=== PATIENT | male | born 1965 | race Caucasian/White ===

== ENCOUNTER → 2018-09-20 | Outpatient (CLI) | payer MEDICARE, MEDICAID ==
--- NOTE | 2018-09-20 15:13 | Diagnostic Imaging Report ---
INDICATION: Cough. TECHNIQUE: Two view chest 2:57 PM. CORRELATION STUDY: None FINDINGS: Heart size within normal limits. Slight increased density left hilum likely attributed to patient positioning. Lung [place] demonstrate no infiltrate. Slight hyperinflation suggested. Diffuse thin bridging osteophytes of the thoracic spine along with curvature. Features raise suggestion of ankylosing spondylitis. There is absence of disc spaces at the mid and lower thoracic spine. IMPRESSION: 1. No radiographic evidence for acute abnormality of the chest. 2. Diffuse thin bridging fusion across the vertebral bodies suggesting underlying ankylosing spondylitis. Dictated by: Dictated on workstation # [id number]
== END ==
LOC: RAD FS 14:53
PROVIDERS: ATTEND Nurse Practitioner Family
DX: J44.9 Chronic obstructive pulmonary disease, unspecified (principal); Z98.1 Arthrodesis status
CPT/HCPCS: 71046

== ENCOUNTER → 2018-11-02 | Outpatient (CLI) | payer MEDICARE, MEDICAID ==
[~2018-11-02] MED LIST: RT-ALBUTEROL SULF 2.5 MG/3 ML PRE-MIX VIAL INH ONE; RT-ALBUTEROL SULF 2.5 MG/3 ML PRE-MIX VIAL ONE
== END ==
LOC: RT 14:35
PROVIDERS: ATTEND Nurse Practitioner Family
DX: J44.9 Chronic obstructive pulmonary disease, unspecified (principal)
CPT/HCPCS: 94060; 94726; 94729

== ENCOUNTER → 2020-09-05 | Outpatient (CLI) | payer MEDICARE, MEDICAID ==
--- NOTE | 2020-09-05 12:29 | Diagnostic Imaging Report ---
INDICATION: Left hip pain. Fall. FINDINGS: 3 views. The femoral head is in good alignment with the acetabulum. There are mild arthritic changes. There are no fractures. The articulating surfaces are smooth. No significant hypertrophic changes. No soft tissue calcification demonstrated about the hip. IMPRESSION: Mild arthritic changes with no acute abnormalities noted. Dictated by: Dictated on workstation # [id number]
== END ==
LOC: RAD FS 12:10
PROVIDERS: ATTEND Nurse Practitioner Family
DX: M16.12 Unilateral primary osteoarthritis, left hip (principal); W19.XXXA Unspecified fall, initial encounter
CPT/HCPCS: 73502

== ENCOUNTER → 2020-09-24 | Outpatient (CLI) | payer MEDICARE, MEDICAID ==
--- NOTE | 2020-09-24 10:02 | Diagnostic Imaging Report ---
INDICATION: Left hip pain, fall 2 weeks ago. TIME OF EXAM: 9:12 AM. TECHNIQUE: Two views of the left hip were obtained. FINDINGS: There is normal femoroacetabular alignment. The femoral head and neck appear to be intact. No fractures are seen. The rami are intact. IMPRESSION: No acute bony abnormality is detected. Dictated by: Dictated on workstation # [id number]
== END ==
LOC: RAD FS 09:01
PROVIDERS: ATTEND Nurse Practitioner
DX: M16.12 Unilateral primary osteoarthritis, left hip (principal)
CPT/HCPCS: 73502

== ENCOUNTER 2021-06-05 08:57 | Outpatient (CLI) | payer MEDICARE, MEDICAID ==
[~2021-06-05] VITALS: Ht 165 cm; Wt 75.0 kg
[2021-06-05] MEDS ORDERED: TRAM50TA3 PO (10:57)
[2021-06-05] MEDS ORDERED: ROSU20TA32 PO (10:57)
[2021-06-05] MEDS ORDERED: ALPR0.254 PO (10:57)
[2021-06-05] MEDS ORDERED: RT-ALBUINH IH (10:57)
== END 2021-06-05 15:08 | disposition home or self-care (01) ==
LOC: PREOP 08:57
PROVIDERS: ATTEND Surgery
DX: Z01.818 Encounter for other preprocedural examination (principal)

== ENCOUNTER 2021-06-09 08:55 | Day surgery (SDC) | payer MEDICARE, MEDICAID ==
[~2021-06-09] VITALS: Ht 165 cm; Wt 75.0 kg
[~2021-06-09 08:55] MED LIST changes: +ALPR0.254 PO; +ROSU20TA32 PO; +RT-ALBUINH IH; -RT-ALBUTEROL SULF 2.5 MG/3 ML PRE-MIX VIAL INH ONE; -RT-ALBUTEROL SULF 2.5 MG/3 ML PRE-MIX VIAL ONE; +TRAM50TA3 PO
[2021-06-09] MEDS ORDERED: LACTATED RINGERS 1,000 ML IV STA (08:58)
[2021-06-09] MEDS ORDERED: LACTATED RINGERS 1,000 ML IV ONE (09:01)
[2021-06-09 09:10] VITALS: BP 130/85
--- NOTE | 2021-06-09 09:57 | Progress Note-Pre Operative ---
Pre-Operative Progress Note H&P Reviewed The H&P was reviewed, patient examined and no changes noted. Time Seen by Provider: 09:55 Date H&P Reviewed: Jun 09, 2021 Time H&P Reviewed: 09:55 Pre-Operative Diagnosis: PARAS Chapman DO Jun 09, 2021 09:57
[2021-06-09] MEDS ORDERED: PROPOFOL INJECTION 50 ML IV ONE (11:24)
--- NOTE | 2021-06-09 11:52 | Progress Note-Post Operative ---
Post-Operative Progess Note Surgeon (s)/Government Instructor (s) Surgeon PARAS LUCIA DO Government Instructor: MAYLIN Arora Pre-Operative Diagnosis Screening Post-Operative Diagnosis Polyp diverticula hemorrhoids Procedure & Operative Findings Date of Procedure 06/09/21 Procedure Performed/Findings Colonoscopy with snare polypectomy PROCEDURE NOTE: After informed consent was obtained, the patient was brought to the endoscopy suite, placed in bed in left lateral decubitus position. He was administered IV sedation by the SPECIALTY TRIMMER who then monitored his vitals the entire time, heart rate, blood pressure and pulse ox and the scope was inserted, pushed all the way to about 150 cm and pushed into the cecum. Took a picture of appendiceal orif ice and then slowly withdrew the scope insufflating to look circumferentially at the begum starting in the cecum and up the ascending colon. Found a polyp in the ascending colon, took a picture and then removed it with a snare polypectomy. Continued up to the hepatic flexure, then down the transverse colon to the splenic flexure. Finally into the descending colon and down through the sigmoid; found diverticula throughout here. Next into the rectal vault and retroflexed the scope. Took picture of the internal hemorrhoids. The patient tolerated the procedure. He was recovered in endoscopy suite. Anesthesia Type IV sedation by SPECIALTY TRIMMER Estimated Blood Loss Estimated blood loss (mL): scant Specimens/Packing Specimens Removed asc colon polyp PARAS LUCIA DO Jun 09, 2021 11:52
[2021-06-09 11:55] VITALS: BP 107/63
[2021-06-09 12:00] VITALS: BP 112/67
--- NOTE | 2021-06-09 12:01 | Endoscopy Discharge Instruct ---
Endo Procedure/Findings Findings 1.: Polyp 2.: Diverticulosis 3.: Internal Hemorrhoids Discharge Instructions - Activity: You might feel a little sleepy until tomorrow. This is due to the medicine you received to relax you. Until tomorrow, you should: NOT drive a car, operate machinery or power tools. NOT drink any alcoholic beverages. NOT make any important decisions or sign importortant papers. Do not return to work until tomorrow, unless otherwise instructed. Resume previous activities tomorrow. Diet: Start by taking liquids. If you tolerate liquids, advance to solid food. 1.: Colonscopy in 5 years Notify Physician - If you experience excessive bleeding, unusual abdominal pain, fever, or chest pain, contact your doctor immediately. PARAS LUCIA DO Jun 09, 2021 12:01
[2021-06-09 12:20] VITALS: BP 113/85
--- NOTE | 2021-06-09 12:32 | Anesthesia-General Post-Op ---
MAC Patient Condition Mental Status/LOC: Same as Preop Cardiovascular: Satisfactory Nausea/Vomiting: Absent Respiratory: Satisfactory Pain: Controlled Complications: Absent Post Op Complications Complications None Follow Up Care/Instructions Patient Instructions None needed. Anesthesiology Discharge Order Discharge Order Patient is doing well, no complaints, stable vital signs, no apparent adverse anesthesia problems. No complications reported per nursing. BELA BENITEZ CRNA Jun 09, 2021 12:32
== END 2021-06-09 12:30 | disposition home or self-care (01) ==
LOC: ENDO 08:55
PROVIDERS: ATTEND Surgery
DX: Z12.11 Encounter for screening for malignant neoplasm of colon (principal); K63.5 Polyp of colon; K57.30 Diverticulosis of large intestine without perforation or abscess without bleeding; K64.8 Other hemorrhoids; Z72.0 Tobacco use